=== PATIENT | female | born 1990 | race Caucasian/White ===

== ENCOUNTER → 2021-04-27 | Outpatient (CLI) | payer BC ==
[~2021-04-27] MED LIST: NAPR500 PO; POLY17UD PO
[2021-04-28 14:10] LABS: HPV 16 Negative (Negative); HPV 18 Negative (Negative); HPV OTHER HR TYPES Negative (Negative)
== END ==
LOC: LAB SHORT 11:29 → LAB 11:29
PROVIDERS: Family Medicine
DX: Z01.419 Encounter for gynecological examination (general) (routine) without abnormal findings (principal)
CPT/HCPCS: 87624; G0123

== ENCOUNTER 2024-10-14 07:28 | Day surgery (SDC) | payer OTHER ==
[~2024-10-14] VITALS: Ht 157.5 cm; Wt 86.6 kg
[2024-10-14] MEDS ORDERED: propofoL 50 ML IV ONE (07:35)
[2024-10-14] MEDS ORDERED: Lactated Ringer's 1,000 ML IV ONE ×2 (07:35→08:36)
--- NOTE | 2024-10-14 08:37 | NUR ---
10/14/24 0837 Imelda Schwartz VERBALIZES ABD. FEELING CRAMPY & VERBALIZES HAVING RIGHT SIDED DISCOMFORT "LIKE AN OVER STRETCHED MUSCLE." DR. BARNETT AWARE.
[2024-10-14] MEDS ORDERED: Ondansetron HCl 2 MG / ML 2ML Vial ONE (09:07)
[2024-10-14 09:46] VITALS: BP 110/71
== END 2024-10-14 09:44 | disposition home or self-care (01) ==
LOC: ORSCSDS 07:28
PROVIDERS: Specialist
PROC: 0DJD8ZZ Inspection of Lower Intestinal Tract, Via Natural or Artificial Opening Endoscopic (ICD-10-PCS; principal; 2024-10-14 08:45)
DX: R10.32 Left lower quadrant pain (principal); K62.5 Hemorrhage of anus and rectum; K59.09 Other constipation; K57.30 Diverticulosis of large intestine without perforation or abscess without bleeding; K64.8 Other hemorrhoids; E66.9 Obesity, unspecified
CPT/HCPCS: J2405; J2704; J7120